=== PATIENT | female | born 1965 | race Caucasian/White ===

== ENCOUNTER 2017-12-31 07:08 | Day surgery (SDC) | payer OTHER ==
[2017-12-31] MEDS ORDERED: LIDOCAINE 2% (SDV) 5 ML INJ (08:28)
[2017-12-31] MEDS ORDERED: PROPOFOL 40 ML (08:28)
== END 2017-12-31 15:06 | disposition home or self-care (01) ==
LOC: GIL 07:08
DX: Z12.11 Encounter for screening for malignant neoplasm of colon (principal); E11.9 Type 2 diabetes mellitus without complications; E78.5 Hyperlipidemia, unspecified; I10 Essential (primary) hypertension
CPT/HCPCS: 45378; 82962